=== PATIENT | female | born 1945 | race Caucasian/White ===

== ENCOUNTER 2017-11-05 14:44 | Emergency (ER) | payer OTHER, MEDICARE ==
[2017-11-05] MEDS ORDERED: MORPHINE SULFATE 4 MG/ML SYRG SC ONE (14:54)
[2017-11-05] MEDS ORDERED: MORPHINE SULFATE 4 MG/ML SYRG ONE (15:05)
--- NOTE | 2017-11-05 15:07 | ERNOTE ---
Lower Extremity HPI - General Lower Extremities Pain: ankle: left Time Seen by Provider: 11/05/17 14:52 Source: patient Exam Limitations: no limitations - Immun/Allergies/Home Medications Immunizations: IMMUNIZATION HX Immunizations Up to Date Yes History of Influenza Vaccine No Hx Pneumococcal Vaccination No Allergies/Adverse Reactions: Allergies Allergy/AdvReac Type Severity Reaction Status Date / Time No Known Allergies Allergy Verified 11/05/17 14:50 Home Medications: HOME MEDICATIONS Aspirin [Elba Chewable Aspirin] 81 mg PO DAILY 06/26/13 [Last Taken Unknown] Citalopram Hydrobromide [Celexa] 40 mg PO DAILY 06/26/13 [Last Taken Unknown] Naproxen [Naprosyn] 500 mg PO BID #60 tablet 11/05/17 [Last Taken Unknown] - History of Present Illness Narrative: Patient was carrying boxes down the [place] steps and missed the last step and twisted her left ankle. She now complains of moderate to severe pain and is unable to bear weight on that ankle. Occurred: just prior to arrival Location of Incident: other - [place] Method of Injury: Reports: fell, twisted Reason for Fall: Reports: tripped Loss of Consciousness: Reports: no loss of consciousness Associated Symptoms: Reports: unable to bear weight Other Injuries: Reports: none Review of Systems - Review of Systems Constitutional: Present: See HPI EYE: Present: no symptoms reported ENT: Present: no symptoms reported Respiratory: Present: no symptoms reported Cardiology: Present: no symptoms reported Gastrointestinal/Abdominal: Present: no symptoms reported Genitourinary: Present: no symptoms reported Musculoskeletal: Present: joint pain, joint swelling Skin: Present: no symptoms reported Neurological: Present: no symptoms reported Endocrine: Present: no symptoms reported Hematologic/Lymphatic: Present: no symptoms reported Psych: Present: no symptoms reported - Patient's Past Medical History Patient History - Medical: No pertinent hx Patient History - Cardiac/Respiratory: No pertinent hx Patient History - Cancer: No Hx of Cancer Patient History - Surgical Procedures: Appendectomy, Patient History - Other: None LMP (females 10-50): Menopausal - Social History Living Situations: home Abuse History: No History of abuse Psych History: Hx of Anxiety Smoking Status: Never smoker Have you smoked in the past 12 months: No Do you dip or chew tobacco: No Alcohol Use: none Drug Use: none - Immunizations Immunizations Up to Date: Yes Hx Pneumococcal Vaccination: No History of Influenza Vaccine: No Physical Exam - Physical Exam General Appearance: Present: wd/wn, alert, moderate distress Head Exam: Present: normal inspection Eye Exam: Normal inspection: bilateral, PERRL: bilateral Ears, Nose, Throat: Present: normal ENT inspection, H, normal pharynx Neck: Present: normal inspection, nontender Respiratory: Present: no respiratory distress, normal breath sounds, no accessory muscle use, chest nontender, lungs clear Cardiovascular/Chest: Present: regular rate, rhythm, no murmur, normal peripheral pulses Gastrointestinal/Abdominal: Present: normal bowel sounds, nontender, nondistended, soft, no organomegaly Rectal Exam: Present: deferred Back Exam: Present: normal inspection, normal range of motion Extremity Exam: Present: decreased range of motion, bony tenderness, joint swelling, extremity edema - all around the left ankle Neurological Exam: Present: alert, oriented, normal mood/affect Skin Exam: Present: normal color, warm/dry Lymphatic Exam: Present: no adenopathy ED Progress - Vital Signs Patient's Vital Signs:: I have reviewed the patient's vital signs. Vital Signs: Vital Signs 11/05/17 14:46 Temperature 36.7 C Pulse Rate 74 Respiratory 18 Rate Blood Pressure 154/72 O2 Sat by Pulse 98 Oximetry - X-Ray X-Ray #1 X-Ray: ankle Interpretation: Reviewed by me - Progress/Reassessment Chief Complaint: Lower Extremity Pain/ Injury Plan - Plan Plan: Fortunately the patient appears to have an ankle sprain and will be placed in an ankle splint and she will follow-up with her family doctor as needed. Departure Clinical Impression: Ankle sprain Qualifiers: Encounter type: initial encounter Involved ligament of ankle: unspecified ligament Laterality: left Qualified Code(s): S93.402A - Sprain of unspecified ligament of left ankle, initial encounter - Departure Disposition: Home self-care Condition: Good Instructions: How to Use a Stirrup Ankle Brace, [id number], Ankle Sprain, [id number] Referrals: Omid Conner DO [Primary Care Provider] - Prescriptions: Naproxen [Naprosyn] 500 mg PO BID #60 tablet
[2017-11-05 15:45] VITALS: BP 145/61
== END 2017-11-05 15:30 | disposition home or self-care (01) ==
LOC: ER 14:44
DX: S93.402A Sprain of unspecified ligament of left ankle, initial encounter; Y93.89 Activity, other specified; Y92.22 Religious institution as the place of occurrence of the external cause; W01.0XXA Fall on same level from slipping, tripping and stumbling without subsequent striking against object, initial encounter

== ENCOUNTER 2017-11-07 13:22 | Emergency (ER) | payer OTHER, MEDICARE ==
--- NOTE | 2017-11-07 13:56 | ERNOTE ---
Lower Extremity HPI - Narrative Date of Service: 11/06/17 - General Lower Extremities Pain: ankle: right Time Seen by Provider: 11/07/17 13:43 Source: patient, family Exam Limitations: no limitations - Immun/Allergies/Home Medications Immunizations: IMMUNIZATION HX Immunizations Up to Date Yes History of Influenza Vaccine No Hx Pneumococcal Vaccination No Allergies/Adverse Reactions: Allergies Allergy/AdvReac Type Severity Reaction Status Date / Time No Known Allergies Allergy Verified 11/07/17 13:35 Home Medications: HOME MEDICATIONS Aspirin [Elba Chewable Aspirin] 81 mg PO DAILY 06/26/13 [Last Taken Unknown] Citalopram Hydrobromide [Celexa] 40 mg PO DAILY 06/26/13 [Last Taken Unknown] Naproxen [Naprosyn] 500 mg PO BID #60 tablet 11/05/17 [Last Taken Unknown] - History of Present Illness Narrative: Apparently patient missed the last step yesterday at [facility] and was taken in by ambulance with complaints of left ankle pain. Xray revealed no fracture. However today she began with more pain in the right ankle than the left with some ankle swelling. States she had an appointment this morning with her PCP but could not get out of the driveway and missed the appointment so came to the ER. Denies pain in any other location. Date (Duration): 11/06/17 Occurred: yesterday Location of Incident: other - [facility] Method of Injury: Reports: fell Reason for Fall: Reports: other - Missed bottom step. Loss of Consciousness: Reports: no loss of consciousness Modifying Factors - (Improves): Reports: rest Modifying Factors - (Worsens): Reports: other - Stepping down and flexing foot. Associated Symptoms: Reports: none Other Injuries: Reports: other - left ankle. Prior Treament: Reports: recently seen Review of Systems - Narrative Narrative: See HPI - Review of Systems Constitutional: Present: no symptoms reported Respiratory: Present: no symptoms reported Cardiology: Present: no symptoms reported Gastrointestinal/Abdominal: Present: no symptoms reported Musculoskeletal: Present: other - Right lateral ankle pain with movement. States she has active ROM but limited due to pain. Denies any loss of sensation distally. Neurological: Present: no symptoms reported Endocrine: Present: no symptoms reported Hematologic/Lymphatic: Present: no symptoms reported - Patient's Past Medical History Patient History - Medical: No pertinent hx Patient History - Cardiac/Respiratory: No pertinent hx Patient History - Cancer: No Hx of Cancer Patient History - Surgical Procedures: Appendectomy, Patient History - Other: None LMP (females 10-50): Menopausal - Social History Living Situations: home Abuse History: No History of abuse Psych History: Hx of Anxiety - Immunizations Immunizations Up to Date: Yes Hx Pneumococcal Vaccination: No History of Influenza Vaccine: No Physical Exam - Physical Exam General Appearance: Present: wd/wn, alert, no apparent distress Respiratory: Present: no respiratory distress, no accessory muscle use Peripheral Pulses: N=norm/S=strong/W=weak/B=bound/A=absent: Dorsalis-pedis (R): Normal Extremity Exam: Present: other - Right ankle trimalleolar swelling most significant on the lateral side. No abnormal bony structure. Has active ROM but limited due to discomfort. Distal sensation intact. No pain in the foot. Ecchymosis extending from the ankle down across the dorsal foot. Neurological Exam: Present: alert, oriented ED Progress - Vital Signs Patient's Vital Signs:: I have reviewed the patient's vital signs. Vital Signs: Vital Signs 11/07/17 13:32 Temperature 36.4 C L Pulse Rate 86 Respiratory 15 Rate Blood Pressure 144/75 O2 Sat by Pulse 98 Oximetry - X-Ray X-Ray #1 X-Ray: ankle Interpretation: Reviewed by me X-ray Comments: Radiologist agrees there is a right lateral malleolus distal fib fracture. Discussed with Dr. Medellin who instructed walking boot with mild wt bearing and followup outpatient beginning of week. - Progress/Reassessment Chief Complaint: Lower Extremity Pain/ Injury Progress:: Improved - Does not want any additional intervention. Departure Clinical Impression: Ankle fracture, lateral malleolus, closed Qualifiers: Encounter type: initial encounter Fracture alignment: displaced Laterality: right Qualified Code(s): S82.61XA - Displaced fracture of lateral malleolus of right fibula, initial encounter for closed fracture - Departure Disposition: Home Follow Up Needed Condition: Good Instructions: Ankle Fracture, [id number] Additional Instructions: Leave on the boot with very mild wt bearing. Take extreme caution to prevent further injury since both ankles have been injured. Follow up with Dr. Medellin as planned. May use straight ibuprofen 600mg every 6 hrs with food overlapping with tylenol 650mg every 6 hrs as well. Do not take the ibuprofen with naproxen. Follow up with family provider as well for continued evaluation and monitoring. Referrals: Omid Conner DO [Primary Care Provider] -
[2017-11-07 15:31] VITALS: BP 122/78
== END 2017-11-07 15:31 | disposition home or self-care (01) ==
LOC: ER 13:22
DX: S82.61XA Displaced fracture of lateral malleolus of right fibula, initial encounter for closed fracture; W10.9XXA Fall (on) (from) unspecified stairs and steps, initial encounter; Y92.22 Religious institution as the place of occurrence of the external cause